=== PATIENT | male | born 1960 | race American Indian/Alaskan Native ===

== ENCOUNTER 2021-12-05 09:47 | Outpatient (CLI) | payer OTHER ==
[2021-12-05 10:42] LABS: Alanine Aminotransferase 11 units/L (7-56); Albumin 4.5 g/dL (3.9-5)
[2021-12-05 10:52] LABS: Bilirubin,Direct < 0.2 mg/dL (0-0.2)
== END 2021-12-05 09:48 | disposition home or self-care (01) ==
LOC: LAB 09:47
PROVIDERS: ATTEND Internal Medicine
DX: Z02.71 Encounter for disability determination (principal)
CPT/HCPCS: 36415; 80076; 82565